=== PATIENT | female | born 1980 ===

== ENCOUNTER 2024-06-15 06:35 | Day surgery (SDC) | payer OTHER ==
[2024-06-15] MEDS: PHENAZOPYRIDINE HCL 100 MG TABLET (FP) PO ONE (07:30)
[2024-06-15] MEDS: GABAPENTIN 300 MG CAPSULE PO ONE (07:31)
[2024-06-15] MEDS ORDERED: oxyCODONE HCL 5 MG TABLET PO PRN (07:52)
[2024-06-15] MEDS ORDERED: ONDANSETRON 4 MG/2 ML VIAL IVPUSH PRN (07:52)
[2024-06-15] MEDS ORDERED: LACTATED RINGERS SOLUTION 1,000 ML IV SCH (08:00)
[2024-06-15] MEDS ORDERED: PROPOFOL 20 ML ONE (08:27)
[2024-06-15] MEDS ORDERED: MIDAZOLAM HCL 2 MG/2 ML SINGLE DOSE VIAL ONE (08:28)
[2024-06-15] MEDS ORDERED: ROCURONIUM BROMIDE 50 MG/5 ML SYRINGE ONE ×2 (08:28→09:10)
[2024-06-15] MEDS ORDERED: ceFAZolin SODIUM 1 GM VIAL ONE (08:48)
[2024-06-15] MEDS: ceFAZolin 2 GRAM PREMIX BAG IVPB ONE (08:52)
[2024-06-15] MEDS ORDERED: DEXAMETHASONE SOD PHOSPHATE 4 MG/1 ML VIAL ONE (08:52)
[2024-06-15] MEDS ORDERED: DEXMEDETOMIDINE HCL 200 MCG/2 ML IVPB ONE (09:03)
[2024-06-15] MEDS ORDERED: ACETAMINOPHEN INJECTION 100 ML ONE (09:10)
[2024-06-15] MEDS ORDERED: BUPIVACAINE HCL/PF 0.5% (5MG/ML) 10 ML VIAL ONE (09:22)
[2024-06-15] MEDS ORDERED: SUGAMMADEX SODIUM 200 MG/2 ML VIAL ONE (10:23)
[2024-06-15] MEDS ORDERED: KETOROLAC TROMETHAMINE 30 MG/1 ML VIAL ONE (10:23)
[2024-06-15] MEDS: BUPIVACAINE HCL/PF 0.5% (5MG/ML) 10 ML VIAL IJ ONE ×2 (10:30)
[2024-06-15] MEDS: ACETAMINOPHEN 1000 MG/100 ML BAG IVPB SCH (13:30)
[2024-06-15 17:11] VITALS: RESP 18
[2024-06-15] MEDS: CEFAZOLIN SODIUM 2 GM in DEXTROSE 5%-WATER 100 ML IVPB SCH (17:43)
[2024-06-16] MEDS ORDERED: ACETAMINOPHEN INJECTION 100 ML ONE (05:07)
[2024-06-16 10:56] VITALS: BP 125/80; PULSE 69; TEMP 98
== END 2024-06-16 11:45 | disposition home or self-care (01) ==
LOC: JASUSAT 06:35 → J3W 13:18 → JASUSAT 06-16 11:45
PROVIDERS: ATTEND Obstetrics & Gynecology
PROC: 8E0W4CZ Robotic Assisted Procedure of Trunk Region, Percutaneous Endoscopic Approach (ICD-10-PCS; 2024-06-15)
PROC: 0UB24ZZ Excision of Bilateral Ovaries, Percutaneous Endoscopic Approach (ICD-10-PCS; 2024-06-15)
PROC: 0UT9FZL Resection of Uterus, Supracervical, Via Natural or Artificial Opening With Percutaneous Endoscopic Assistance (ICD-10-PCS; principal; 2024-06-15 08:30)
PROC: 0UT7FZZ Resection of Bilateral Fallopian Tubes, Via Natural or Artificial Opening With Percutaneous Endoscopic Assistance (ICD-10-PCS; 2024-06-15 08:30)
DX: D25.9 Leiomyoma of uterus, unspecified (principal)
CPT/HCPCS: 58554; 58662; S2900; 81025; 86850; 86900; 86901; 88300-TC; 88304-TC; 88305-TC; 88307-TC; 94010; 94760; J0131